=== PATIENT | male | born 1990 | race Hispanic/Latino ===

== ENCOUNTER 2024-01-20 08:17 | Day surgery (SDC) | payer MEDICARE, MEDICAID ==
[2024-01-19 15:13] VITALS: BMI 41.9
[2024-01-20] MEDS ORDERED: Bupivacaine PF 0.5% 30 ML VIAL ONE (08:56)
[2024-01-20] MEDS ORDERED: Bacitracin Zinc Ointment 30 gm TUBE ONE (08:56)
[2024-01-20] MEDS ORDERED: PROPOFOL 20 ML ONE ×2 (09:02→10:30)
[2024-01-20] MEDS ORDERED: Midazolam HCl 2 mg/2 ml Vial ONE (09:02)
[2024-01-20] MEDS ORDERED: fentaNYL PF 100 MCG/2 ML SYRINGE ONE (09:02)
[2024-01-20 09:14] LABS: #Basophils Less than 0.03 10x3/uL (0.0-0.2); #Eosinphils Less than 0.03 10x3/uL (0.0-0.7); %Basophils 0.3 % (0.0-1.0); %Eosinophils 0.2 % (0.0-10.0); %Lymphocytes 25.9 % (21.0-51.0); %Monocytes 5.8 % (0.0-10.0); %Neutrophils 67.5 % (42.0-75.0); Hematocrit 42.5 % (42.0-52.0); Hemoglobin 15.7 g/dL (14.0-18.0); Mean Corpuscular HGB CONC 36.9 g/dL (32.0-36.0); Mean Corpuscular Hemoglobin 31.5 pg (27.0-31.0); Mean Corpuscular Volume 85.3 fL (78.0-98.0); Mean Platelet Volume 9.4 fL (7.4-10.4); Platelet Count 235 10x3/uL (130-400); RBC Distribution Width 12.1 % (11.5-14.5); Red Blood Cell (RBC) Count 4.98 mill/uL (4.70-6.10)
[2024-01-20] MEDS ORDERED: Sodium Chloride 0.9% 100 ML ONE (09:47)
[2024-01-20] MEDS ORDERED: CEFAZOLIN 2 GM VIAL ONE (09:47)
[2024-01-20] MEDS ORDERED: Lidocaine 1% PF 5 ML VIAL ONE (10:04)
[2024-01-20] MEDS ORDERED: HYDROmorphone 2 MG/ML VIAL ONE (10:31)
[2024-01-20] MEDS ORDERED: Dexamethasone 20 MG/5 ML VIAL ONE (10:50)
[2024-01-20] MEDS ORDERED: Ondansetron PF 4 MG/2 ML Vial ONE (10:50)
[2024-01-20] MEDS ORDERED: Ketorolac Tromethamine 30 MG (1 mL) VIAL ONE (10:50)
[2024-01-20] MEDS ORDERED: ePHEDrine Sulfate 50 MG/10 ML VIAL ONE (11:13)
[2024-01-20] MEDS ORDERED: fentaNYL 50 mcg/mL 1 mL Vial ONE (12:44)
== END 2024-01-20 14:14 | disposition home or self-care (01) ==
LOC: SDC 08:17
PROVIDERS: ATTEND Orthopaedic Surgery Hand Surgery
PROC: 0PSV04Z Reposition Left Finger Phalanx with Internal Fixation Device, Open Approach (ICD-10-PCS; principal; 2024-01-20)
DX: S62.631A Displaced fracture of distal phalanx of left index finger, initial encounter for closed fracture (principal); S63.241A Subluxation of distal interphalangeal joint of left index finger, initial encounter; S62.663A Nondisplaced fracture of distal phalanx of left middle finger, initial encounter for closed fracture; I10 Essential (primary) hypertension; E11.9 Type 2 diabetes mellitus without complications; Z79.899 Other long term (current) drug therapy; X58.XXXA Exposure to other specified factors, initial encounter
CPT/HCPCS: 26746; 73140; 85025; A6223; C1894; J0665; J1100; J1170; J1885; J2250; J2405; J2704; J3010; J3490